=== PATIENT | male | born 1955 | race Caucasian/White ===

== ENCOUNTER 2020-02-26 10:57 | Outpatient (CLI) | payer OTHER | END 2020-02-26 10:58 | disposition home or self-care (01) | LOC: COV 10:57 | PROVIDERS: ATTEND Family Medicine | DX: R05 Cough (principal); R53.83 Other fatigue; J02.9 Acute pharyngitis, unspecified; Z20.828 Contact with and (suspected) exposure to other viral communicable diseases ==

== ENCOUNTER 2020-06-26 16:40 | Outpatient (CLI) | payer OTHER | END 2020-06-26 16:41 | disposition home or self-care (01) | LOC: COV 16:40 | PROVIDERS: ATTEND Family Medicine | DX: R05 Cough (principal); M79.10 Myalgia, unspecified site; Z20.828 Contact with and (suspected) exposure to other viral communicable diseases ==

== ENCOUNTER 2021-01-20 18:17 | Emergency (ER) | payer MEDICARE, OTHER ==
--- NOTE | 2021-01-20 18:59 | ED Physician Documentation ---
PD HPI ALTERED MENTAL STATUS - Stated complaint Stated Complaint: CVA SYMPTOMS - Chief complaint Chief Complaint: Neuro - History obtained from History obtained from: Patient, Family - History of Present Illness Timing - onset: Today Timing - duration: Hours (5) Quality / character: Disoriented Associated symptoms: No: Fever, Headache, Stiff neck, Dyspnea, Cough, NVD, Urinary sx, General weakness Contributing factors: No: Anticoagulated, Diabetic, Cancer, COPD, New medication, Recent med change, Recent illness, Recent injury, Intoxicated, Substance abuse, Known psych illness, Known dementia Basline status: Alert and oriented X 3 Recently seen: Not recently seen - Additional information Additional information: Patient is a 65-year-old male who states that he laid down for a nap at about noon today, when he woke up he felt confused. His partner was at home with him. He states that he was very repetitive in his questioning. He would not remember that he just asked the same question. He did retain his sense of self and knew who he was in the long-term memory appeared intact. Short-term memory was severely impaired. He states he feels "off" right now. Has never had similar symptoms previously. No trauma. Has been under increasing stress at home. No numbness or tingling. No focal neurological deficits. Review of Systems Ten Systems: 10 systems reviewed and negative Constitutional: denies: Fever, Chills Nose: denies: Rhinorrhea / runny nose, Congestion Respiratory: denies: Dyspnea, Cough GI: denies: Vomiting, Diarrhea Skin: denies: Rash Musculoskeletal: denies: Neck pain Neurologic: denies: Focal weakness, Numbness, Headache PD PAST MEDICAL HISTORY - Past Medical History Past Medical History: Yes Cardiovascular: MA - Past Surgical History Past Surgical History: No Ortho: Arthroscopic surgery - Present Medications Home Medications: Ambulatory Orders Medication Instructions Recorded Confirmed Escitalopram [Lexapro] 10 mg PO DAILY 01/20/21 01/20/21 Rosuvastatin Calcium [Crestor] 40 mg PO DAILY 01/20/21 01/20/21 - Allergies Allergies/Adverse Reactions: Allergies Allergy/AdvReac Type Severity Reaction Status Date / Time No Known Drug Allergies Allergy Verified 01/20/21 18:29 - Social History Does the pt smoke?: No Smoking Status: Never smoker Does the pt drink ETOH?: Yes ETOH Use: Wine Does the pt have substance abuse?: No Substance Use and Type: CBD oil / Products - Immunizations Immunizations are current?: Yes - POLST Patient has POLST: No PD ED PE NORMAL - Vitals Vital signs reviewed: Yes - General General: Alert and oriented X 3, No acute distress, Well developed/nourished - HEENT HEENT: PERRL, Moist mucous membranes - Neck Neck: Supple, no meningeal sign - Cardiac Cardiac: RRR, Strong equal pulses - Respiratory Respiratory: No respiratory distress, Clear bilaterally - Abdomen Abdomen: Soft, Non tender, Non distended - Derm Derm: Warm and dry - Neuro Neuro: Alert and oriented X 3 - Psych Psych: Normal mood, Normal affect NIHSS - Time Time: 18:50 - Level of Consciousness Level of consciousness: (0) Alert, Keenly responsive LOC Questions: (0) Answers both Q's correct LOC Commands: (0) Performs both correctly - Gaze Best Gaze: (0) Normal - Visual Visual: (0) No loss - Facial Palsy Facial Palsy: (0) Normal, symmetrical movement - Motor Arms (both separate) Motor Arm (right): (0) No drift Motor Arm (left): (0) No drift - Motor Legs (both separate) Motor Leg (right): (0) No drift Motor Leg (left): (0) No drift - Limb Ataxia Limb Ataxia: (0) Absent - Sensory Sensory: (0) Normal - Best Language Best Language: (0) No aphasia - Dysarthria Dysarthria: (0) Normal - Extinction and Inattention (formally neg Extinction and inattention: (0) No abnormality - Total Score/Results Total Score/Result: 0 Results - Vitals Vitals: Vital Signs - 24 hr 01/20/21 01/20/21 01/20/21 18:25 18:50 18:59 Temperature 36.7 C Heart Rate 61 61 55 L Respiratory 16 17 19 Rate Blood Pressure 144/96 H 134/92 H 137/88 H O2 Saturation 98 100 100 01/20/21 01/20/21 19:30 20:58 Temperature 36.8 C Heart Rate 88 63 Respiratory 18 15 Rate Blood Pressure 128/78 141/92 H O2 Saturation 100 99 Oxygen O2 Source Room air - EKG (time done) 1919 Rate: Rate (enter#) (64) Rhythm: NSR Pandora: LAD Intervals: Normal TN QRS: Normal Ischemia: Normal ST segments, Q waves (v2) - Labs Labs: Laboratory Tests 01/20/21 01/20/21 18:40 18:40 WBC 6.9 RBC 4.81 Hgb 15.1 Hct 43.5 MCV 90.4 MCH 31.4 H MCHC 34.7 RDW 12.4 Plt Count 154 MPV 11.8 H Neut # (Auto) 4.7 Lymph # (Auto) 1.5 [place] # (Auto) 0.6 Eos # (Auto) 0.1 Baso # (Auto) 0.1 Absolute Nucleated RBC 0.00 Nucleated RBC % 0.0 Sodium 137 Potassium 3.6 Chloride 100 L Carbon Dioxide 26 Anion Gap 11.0 BUN 21 H Creatinine 1.1 Estimated GFR (MDRD) 67 L Glucose 103 H Calcium 9.3 Total Bilirubin 1.0 AST 32 ALT 23 Alkaline Phosphatase 44 Total Protein 7.2 Albumin 4.6 Globulin 2.6 Albumin/Globulin Ratio 1.8 Lipase 21 L - Rads (name of study) CTA head Radiology: Prelim report reviewed, EMP read contemporaneously, See rad report (No dynamically significant stenosis or occlusion of the major intracranial arterial vasculature. Bilateral carotid artery ectasia at the level of the skull base and intracranial segments. ) CTA neck Radiology: Prelim report reviewed, EMP read contemporaneously, See rad report (No hemodynamically significant stenosis or occlusion of the major extracranial arterial vasculature. ) PD MEDICAL DECISION MAKING - ED course Complexity details: reviewed results, re-evaluated patient, considered differential, d/w patient, d/w family ED course: No acute findings on laboratory testing, head CT, angiogram of the head and neck. Likely that this represents transient global amnesia. Patient was back to baseline in the emergency department. We did discuss that this is a diagnosis of exclusion and an MRI be needed to complete the work-up. He does not want to stay in the hospital for an MRI. He states he will follow up with his doctor for this test. NIH stroke scale is 0. Patient counseled regarding signs and symptoms for which I believe and urgent re-evaluation would be necessa ry. Patient with good understanding of and agreement to plan and is comfortable going home at this time This document was made in part using voice recognition software. While efforts are made to proofread this document, sound alike and grammatical errors may occur. Departure - Departure Disposition: Home, Self Care Clinical Impression: Transient global amnesia Condition: Good Instructions: ED Altered Loc Follow-Up: DOMINGA ALEXANDER DO [Primary Care Provider] - Within 1 week Comments: Follow up with your doctor for further care. It is recommended that you have an MRI of your brain as an outpatient. Your CT angiogram of your head and neck are normal tonight. Your testing is normal. Discharge Date/Time: 01/20/21 21:00
[2021-01-20 19:02] LABS: BASOPHILS # (AUTO) 0.1 10^3/uL (0.0-0.1); BASOPHILS % (AUTO) 0.7 %; EOSINOPHILS # (AUTO) 0.1 10^3/uL (0.0-0.7); EOSINOPHILS % (AUTO) 0.7 %; HCT - HEMATOCRIT 43.5 % (42.0-52.0); HGB - HEMOGLOBIN 15.1 g/dL (14.0-18.0); LYMPHOCYTES # (AUTO) 1.5 10^3/uL (1.5-3.5); LYMPHOCYTES % (AUTO) 22.4 %; MEAN CORPUSCULAR HEMOGLOBIN 31.4 pg (27.0-31.0); MEAN CORPUSCULAR HGB CONC 34.7 g/dL (32.0-36.0); MEAN CORPUSCULAR VOLUME 90.4 fL (80.0-94.0); MEAN PLATELET VOLUME 11.8 fL (7.4-11.4); MONOCYTES # (AUTO) 0.6 10^3/uL (0.0-1.0); MONOCYTES % (AUTO) 8.1 %; NEUTROPHILS # (AUTO) 4.7 10^3/uL (1.5-6.6); PLT - PLATELET COUNT 154 10^3/uL (130-450); RED BLOOD COUNT 4.81 10^6/uL (4.70-6.10); RED CELL DISTRIBUTION WIDTH 12.4 % (12.0-15.0); WHITE BLOOD COUNT 6.9 x10^3/uL (4.8-10.8)
[2021-01-20 19:13] LABS: ALBUMIN 4.6 g/dL (3.2-5.5); ALBUMIN/GLOBULIN RATIO 1.8 (1.0-2.2); CALCIUM 9.3 mg/dL (8.5-10.3); CREATININE 1.1 mg/dL (0.6-1.2); POTASSIUM 3.6 mmol/L (3.5-5.0); TOTAL PROTEIN 7.2 g/dL (6.7-8.2)
[2021-01-20] MEDS ORDERED: IOVERSOL 320 100 ML VIAL IVP ONE ×2 (20:02→20:13)
--- NOTE | 2021-01-20 20:18 | CT Report ---
PROCEDURE: ANGIO NECK W INDICATIONS: Confusion CONTRAST: IV CONTRAST: Optiray 320 ml: 80 PO CONTRAST: *NO PO CONTRAST TECHNIQUE: After the administration of intravenous contrast, 1.5 mm axial sections acquired from the aortic arch to the [place] of [place]. Coronal 3-D maximum intensity projection (MIP) and/or volume rendering ref ormats were then performed. For radiation dose reduction, the following was used: automated exposur e control, adjustment of mA and/or kV according to patient size. COMPARISON: None. FINDINGS: Image quality: Excellent. Standard three-vessel aortic arch anatomy. No hemodynamic significant narrowing of the arch branch ve ssel origins. The bilateral common carotid arteries, carotid bifurcations, and extracranial internal carotid arteries are widely patent. Cervical portions of the vertebral arteries are widely patent. No acute finding in the included lung apices. Cervical osseous structures demonstrate no acute findin g. Limited arterial evaluation of the cervical visceral structures demonstrates no obvious mass or ly mphadenopathy or fluid collection. IMPRESSION: No hemodynamically significant stenosis or occlusion of the major extracranial arterial vasculature. The estimate of stenosis included in the report of the imaging study was calculated using the NASCET method Reviewed by: Cordell Fox MD on 01/20/2021 8:17 PM PDT Approved by: Cordell Fox MD on 01/20/2021 8:17 PM PDT Station ID: [id number]
--- NOTE | 2021-01-20 20:20 | CT Report ---
PROCEDURE: ANGIO HEAD W/WO INDICATIONS: Confusion today CONTRAST: IV CONTRAST: Optiray 320 ml: 80 PO CONTRAST: *NO PO CONTRAST TECHNIQUE: Precontrast 4.5 mm thick angled axial sections acquired from the foramen magnum to the vertex. Afte r the administration of intravenous contrast, 1 mm thick sections acquired through the [place] of [place] is. Postcontrast 4.5 mm thick sections then re-acquired from the foramen magnum to the vertex. 3-di mensional syqwqfu-pmzzjskeu-maqksmvbqa (MIP) and/or volume rendering reformats were acquired of the c entral intracranial vasculature. For radiation dose reduction, the following was used: automated ex posure control, adjustment of mA and/or kV according to patient size. COMPARISON: None FINDINGS: CT angiography of the head: There is ectasia of the bilateral internal carotid arteries which are also tortuous and somewhat redu ndant. The bilateral carotid arteries are widely patent. Anterior, middle, and posterior cerebral art susie branches demonstrate no flow-limiting stenosis or occlusion. The basilar artery is unremarkable. There is no flow-limiting stenosis of the anterior or posterior circulation. Anterior and posterior c ommunicating arteries are present. There is no acute intracranial hemorrhage, abnormal extra axial fluid collection, mass effect, or mid line shift. Mild global volume loss and chronic microvascular ischemic change. No gross orbital abnor mality. Paranasal sinuses and mastoid air cells are predominantly clear. No suspicious lytic or blast ic osseous lesion. IMPRESSION: No dynamically significant stenosis or occlusion of the major intracranial arterial vasculature. Bilateral carotid artery ectasia at the level of the skull base and intracranial segments. Reviewed by: Cordell Fox MD on 01/20/2021 8:18 PM PDT Approved by: Cordell Fox MD on 01/20/2021 8:18 PM PDT Station ID: [id number]
[2021-01-20 20:59] VITALS: BP 141/92
== END 2021-01-20 21:00 | disposition home or self-care (01) ==
LOC: ED 18:17
DX: G45.4 Transient global amnesia (principal)
CPT/HCPCS: 36415; 70496; 70498; 80053; 83690; 85025; 93005; 99284; Q9967

== ENCOUNTER 2022-09-27 08:00 | Outpatient (CLI) | payer MEDICARE ==
--- NOTE | 2022-09-28 09:33 | XRAY Report ---
PROCEDURE: Chest 2 View X-Ray INDICATIONS: SHORTNESS OF BREATH, DIZZINESS WITH RECENT TRAVEL TECHNIQUE: 2 views of the chest were acquired. COMPARISON: None. FINDINGS: Surgical changes and devices: None. Lungs and pleura: No pleural effusions or pneumothorax. Lungs are clear. Mediastinum: Mediastinal contours are normal. Heart size is normal. Bones and chest wall: No suspicious bony abnormalities. Soft tissues appear unremarkable. IMPRESSION: No acute cardiopulmonary process. Reviewed by: Shakir Bashir on 09/28/2022 9:31 AM [facility] Approved by: Shakir Bashir on 09/28/2022 9:31 AM [facility] Station ID: [id number]
== END 2022-09-27 23:59 | disposition home or self-care (01) ==
LOC: DI.S 08:00
PROVIDERS: ATTEND Physician Assistant
DX: R06.02 Shortness of breath (principal); R42 Dizziness and giddiness

== ENCOUNTER 2022-12-26 07:00 | Outpatient (CLI) | payer MEDICARE ==
--- NOTE | 2022-12-27 14:47 | XRAY Report ---
PROCEDURE: Hand 3 View RT INDICATIONS: PAIN IN RIGHT HAND TECHNIQUE: 3 views of the hand(s) acquired. COMPARISON: None. FINDINGS: Bones: There is a dorsally displaced/angulated fracture at the base of the fifth proximal phalanx. I t is comminuted in nature. No intra-articular extension. Soft tissues: No suspicious soft tissue calcifications or masses. IMPRESSION: Dorsally displaced/angulated proximal fifth phalanx fracture. Reviewed by: Cristiana Friedman MD on 12/27/2022 2:46 PM PDT Approved by: Cristiana Friedman MD on 12/27/2022 2:46 PM PDT Station ID: [id number]
--- NOTE | 2022-12-27 14:48 | XRAY Report ---
PROCEDURE: Knee 3 View RT INDICATIONS: CONTUSION OF RIGHT KNEE TECHNIQUE: 3 views of the right knee(s) were acquired. COMPARISON: None. FINDINGS: Bones: No fractures or dislocations. No suspicious bony lesions. Mild to moderate medial and mild patellofemoral degenerative compartment narrowing. Soft tissues: Prominent soft tissue edema is present overlying the patella as well as mild effusion.. No suspicious soft tissue calcifications or masses. IMPRESSION: Prominent peripatellar soft tissue edema and effusion. No visualized acute fracture or dislocation. H owever, occult injury cannot be excluded. Recommend short interval imaging follow-up in 7-10 days as clinically indicated for additional evaluation. Reviewed by: Cristiana Friedman MD on 12/27/2022 2:47 PM PDT Approved by: Cristiana Friedman MD on 12/27/2022 2:47 PM PDT Station ID: [id number]
== END 2022-12-26 23:59 | disposition home or self-care (01) ==
LOC: DI.S 07:00
PROVIDERS: ATTEND Physician Assistant
DX: S80.01XA Contusion of right knee, initial encounter (principal); S62.616A Displaced fracture of proximal phalanx of right little finger, initial encounter for closed fracture